=== PATIENT | male | born 1990 | race African-American/Black ===

== ENCOUNTER 2018-05-20 10:13 | Emergency (ER) | payer SELFPAY ==
[~2018-05-20] VITALS: Ht 175.3 cm; Wt 67.0 kg
[2018-05-20] MEDS ORDERED: ACETAMINOPHEN WITH CODEINE 300/30MG TABLET PO ONE (11:15)
[2018-05-20] MEDS ORDERED: IBUPROFEN 800MG TABLET PO ONE (11:15)
[2018-05-20 11:30] VITALS: BP 142/75
== END 2018-05-20 11:32 | disposition home or self-care (01) ==
LOC: ER 10:13
DX: R51 Headache (principal); V43.62XA Car passenger injured in collision with other type car in traffic accident, initial encounter; Y93.89 Activity, other specified; Y92.488 Other paved roadways as the place of occurrence of the external cause
CPT/HCPCS: 99283